=== PATIENT | male | born 1990 | race Caucasian/White ===

== ENCOUNTER → 2020-06-28 | Outpatient (CLI) | payer OTHER | END | disposition home or self-care (01) | LOC: RADMN 15:16 | PROVIDERS: ATTEND Internal Medicine | DX: R76.11 Nonspecific reaction to tuberculin skin test without active tuberculosis (principal) | CPT/HCPCS: 71045-TC ==

== ENCOUNTER → 2021-06-11 | Outpatient (CLI) | payer OTHER ==
[2021-06-11 09:13] LABS: BASOPHILS % (AUTO) 0.4 % (0.0-2.0); EOSINOPHILS % (AUTO) 2.5 % (1.0-6.0); HEMATOCRIT 39.6 % (41-53); HEMOGLOBIN 14.1 g/dL (13.5-17.5); LYMPHOCYTES # (AUTO) 2.6 K/uL (1.0-4.8); MEAN CORPUSCULAR HEMOGLOBIN 30.8 pg (26.0-34.0); MEAN CORPUSCULAR HGB CONC 35.6 G/dL (31.0-37.0); MEAN CORPUSCULAR VOLUME 86 fL (80-100); MONOCYTES # (AUTO) 0.6 K/uL (0.1-1.0); MONOCYTES % (AUTO) 8.6 % (2.0-9.0); NEUTROPHILS # (AUTO) 3.5 K/uL (1.8-7.7); NEUTROPHILS % (AUTO) 50.5 % (40.0-70.0); PLATELET COUNT (AUTO) 192 K/uL (150-450); RED BLOOD CELL COUNT(AUTO) 4.59 MIL/uL (4.50-5.90); RED CELL DISTRIBUTION WIDTH 13.1 % (11.5-14.5)
[2021-06-11 09:18] LABS: HEMOGLOBIN A1C 4.2 % (3.8-5.6)
[2021-06-11 09:33] LABS: ALANINE AMINOTRANSFERASE 24 U/L (12-78); ALBUMIN 4.2 g/dL (3.4-5.0); ALKALINE PHOSPHATASE 82 U/L (46-116); ANION GAP 6 mmol/L (8-16); ASPARTATE AMINOTRANSFERASE 18 U/L (15-37); BILIRUBIN,TOTAL 1.1 mg/dL (0.1-1.0); CALCIUM, TOTAL 8.9 mg/dL (8.8-10.5); CARBON DIOXIDE 29 mmol/L (22-29); CHLORIDE 103 mmol/L (98-107); CHOL/HDL RATIO 2.4 (4.2-7.3); CHOLESTEROL 99 mg/dL (131-200); CREATININE 1.21 mg/dL (0.60-1.30); GLOMERULAR FILTR. RATE CALC > 60 mL/min (>60); GLUCOSE,RANDOM 100 mg/dL (70-110); HDL CHOLESTEROL 42 mg/dL (40-60); LDL CHOL (CALC.) 50 mg/dL (0-130); POTASSIUM 3.7 mmol/L (3.5-5.1); SODIUM SERUM 138 mmol/L (136-145); THYROID STIMULATING HORMONE 2.58 uIU/mL (0.36-3.74); TOTAL PROTEIN, SERUM 8.8 g/dL (6.4-8.2); TRIGLYCERIDES 35 mg/dL (15-150); UREA NITROGEN, BLOOD 15 mg/dL (7-18)
[2021-06-11 14:48] LABS: FOLATE SERUM 6.5 ng/mL (5.4-)
== END | disposition home or self-care (01) ==
LOC: LABMN 07:14
PROVIDERS: ATTEND Internal Medicine Geriatric Medicine
DX: Z00.00 Encounter for general adult medical examination without abnormal findings (principal)
CPT/HCPCS: 80053; 80061; 82043; 82306; 82570; 82607; 82746; 83036; 84443; 85025

== ENCOUNTER 2024-05-28 07:28 | Emergency (ER) | payer OTHER ==
[~2024-05-28] VITALS: Ht 185.4 cm; Wt 89.1 kg
[2024-05-28 07:33] VITALS: BP 140/80; PULSE 85; RESP 18; TEMP 98.7; O2SAT 100
[2024-05-28] MEDS ORDERED: CEPH-558 PO (07:43)
== END 2024-05-28 07:53 | disposition home or self-care (01) ==
LOC: EMS 07:30
DX: L73.9 Follicular disorder, unspecified (principal)
CPT/HCPCS: 99283; Z7502

== ENCOUNTER 2025-01-17 07:55 | Day surgery (SDC) | payer OTHER ==
[~2025-01-17] VITALS: Ht 185.4 cm; Wt 88.2 kg
[~2025-01-17 07:55] MED LIST: DOLU1TAB2 PO; RINGERS SOLUTION,LACTATED 1,000 ML IV ONE
[2025-01-17] MEDS: CHLORHEXIDINE GLUCONATE 2% TOWELETTE [2'S/6'S] TP ONE (08:37)
[2025-01-17] MEDS: RINGERS SOLUTION,LACTATED 1,000 ML IV ONE (08:37)
[2025-01-17] MEDS: ETHYL ALCOHOL 62% ANTISEPTIC NASAL SANITIZER 0.6 ML AMPUL NASAL ONE (08:38)
[2025-01-17] MEDS ORDERED: ONDANSETRON HCL 4 MG/2 ML VIAL ONE (09:55)
[2025-01-17] MEDS ORDERED: SUGAMMADEX SODIUM 200 MG/2 ML VIAL IVP ONE (09:55)
[2025-01-17] MEDS ORDERED: PROPOFOL 1% 20 ML VIAL IVP ONE (09:55)
[2025-01-17] MEDS ORDERED: DEXAMETHASONE SOD PHOS 4 MG/ML VIAL ONE (09:55)
[2025-01-17] MEDS ORDERED: LIDOCAINE/PF 2% 5 ML VIAL ONE (09:55)
[2025-01-17] MEDS ORDERED: ROCURONIUM BROMIDE 10 MG/ML 5 ML VIAL ONE (09:55)
[2025-01-17] MEDS: HYDROGEN PEROXIDE 3% 473 ML SOLUTION ONE (10:24)
[2025-01-17] MEDS: BUPIVACAINE LIPOSOME/PF 1.3%-13.3MG/ML SUSP 20 ML VIAL INJ ONE (10:44)
[2025-01-17] MEDS ORDERED: MEPERIDINE-PF 25 MG/ML VIAL IVP PRN (10:45)
[2025-01-17] MEDS ORDERED: FentaNYL CITRATE PF 100 MCG/2 ML VIAL IVP PRN (10:45)
[2025-01-17] MEDS ORDERED: OXYGEN THERAPY IH SCH (20:00)
== END 2025-01-17 12:20 | disposition home or self-care (01) ==
LOC: SURGERY 07:55
PROVIDERS: ATTEND Surgery
DX: K60.30 Anal fistula, unspecified (principal); B20 Human immunodeficiency virus [HIV] disease; F12.90 Cannabis use, unspecified, uncomplicated; Z79.899 Other long term (current) drug therapy
CPT/HCPCS: 46275; J0666; J2704; J1100; J3490 ×3; J2405; J7120